=== PATIENT | female | born 1965 | race Caucasian/White ===

== ENCOUNTER 2016-11-21 19:56 | Emergency (ER) | payer MEDICAID, SELFPAY ==
[~2016-11-21 19:56] MED LIST: CEFTIN125 MG/5 M PO; KLOR-CON M2020 ME1 PO; LAMICTAL DPS100 MG PO; LAMICTAL150 MG PO; MAALOX DPS30 ML PO; MOTRIN IB200 MG PO; NEURONTIN DPS300 MG PO; PEPCID DPS20 MG PO; PHENERGAN DPS25 MG PO; POTASSIUM CHLO20 ME1 PO; SURFAK DPS240 MG PO; SYNTHROID DP0.125 MG PO; SYNTHROID150 MCG PO; TOPROL XL50 MG PO; TYLENOL DPS325 MG PO; ULTRAM DPS50 MG PO; ZANAFLEX4 MG PO; ZOFRAN4 MG PO
--- NOTE | 2016-11-23 17:39 | ER ---
ADMIT: 11/21/2016 RM/LOC: ER [facility] MR#: [id number] 26[address] [facility] [address] [place] [id number] GRAHAM MCKENZIE [address] [place] [address] Emergency Room Report SEX: F AGE: 51 : 1965 DATE: 11/21/2016 For chief complaint, history of present illness, past medical history, medications, allergies, review of systems, including physical exam, please see my T-sheet. INTERIM HISTORY: The patient is a 51-year-old, white female, who presents to the emergency room. She does have a longstanding history of chronic back pain of which she sees Pain Management for it. She said occasionally it flares up and then becomes worse for her. The patient reports that nothing new or different has been done. She is waiting on getting a stimulator place, but that will be until January. The patient reports the pain is in the same spot as always. She has an appointment to see Dr. Galvez later this week. PHYSICAL EXAMINATION: VITAL SIGNS: Stable. MUSCULOSKELETAL: The patient has pain to palpation of the lumbar spine. She has limited range of motion with rotation and flexion-extension. EMERGENCY ROOM COURSE: In reviewing the old records, she has had an injection of Toradol, morphine, and Decadron which has given her significant relief. The patient was given this cocktail here in the Emergency Department with instructions to follow up with Dr. Galvez. IMPRESSION: Chronic back pain. PLAN: Home rest. Activity as tolerated. Follow up with Dr. Galvez this week. Return if problems or symptoms worsen. The patient is in stable condition at discharge. MARJORIE Palomares / Anjum Branch MD / jak JOB #: [id number] CC: Anjum Branch MD, Attending Physician Marisol Galvze MD, Family Physician
[2017-01-28] MEDS ORDERED: CIPRO DPS500 MG PO (08:57)
[2017-01-28] MEDS ORDERED: PAXIL DPS20 MG PO (08:58)
[2017-01-28] MEDS ORDERED: SYMBICORT160 MCG/6 IH (08:59)
[2017-06-13] MEDS ORDERED: LIPITOR DPS20 MG PO (13:52)
[2017-06-13] MEDS ORDERED: SEROQUEL50 MG PO (13:52)
[2017-06-13] MEDS ORDERED: ZANTAC DPS150 MG PO (13:53)
[2017-06-13] MEDS ORDERED: TOPROL XL25 MG PO (13:53)
[2017-06-13] MEDS ORDERED: MECLIZINE HCL12.5 MG PO (13:53)
[2017-06-13] MEDS ORDERED: FLEXERIL DPS5 MG PO (13:54)
[2017-06-13] MEDS ORDERED: VISTARIL-DPS25 MG PO (13:55)
[2017-06-13] MEDS ORDERED: NITROFURANTOIN100 MG PO (13:55)
[2017-06-13] MEDS ORDERED: SYNTHROID200 MCG PO (13:55)
[2017-06-13] MEDS ORDERED: TYLENOL DPS325 MG PO (13:56)
[2017-06-13] MEDS ORDERED: LOTENSIN10 MG PO (13:56)
[2017-06-13] MEDS ORDERED: ULTRAM DPS50 MG PO (13:56)
[2017-06-13] MEDS ORDERED: MAALOX DPS30 ML PO (13:56)
[2017-06-13] MEDS ORDERED: COLACE-DPS100 MG PO (13:57)
[2017-06-13] MEDS ORDERED: KEFLEX-DPS500 MG PO (13:57)
== END 2016-11-21 20:45 | disposition home or self-care (01) ==
LOC: ER 19:56
DX: M54.5 Low back pain (principal); G89.29 Other chronic pain

== ENCOUNTER 2017-01-23 06:46 | Inpatient (IN) | payer MEDICARE, MEDICAID ==
[2017-01-28] MEDS ORDERED: CIPRO DPS500 MG PO (08:57)
[2017-01-28] MEDS ORDERED: PAXIL DPS20 MG PO (08:58)
[2017-01-28] MEDS ORDERED: SYMBICORT160 MCG/6 IH (08:59)
[2017-06-13] MEDS ORDERED: LIPITOR DPS20 MG PO (13:52)
[2017-06-13] MEDS ORDERED: SEROQUEL50 MG PO (13:52)
[2017-06-13] MEDS ORDERED: ZANTAC DPS150 MG PO (13:53)
[2017-06-13] MEDS ORDERED: TOPROL XL25 MG PO (13:53)
[2017-06-13] MEDS ORDERED: MECLIZINE HCL12.5 MG PO (13:53)
[2017-06-13] MEDS ORDERED: FLEXERIL DPS5 MG PO (13:54)
[2017-06-13] MEDS ORDERED: VISTARIL-DPS25 MG PO (13:55)
[2017-06-13] MEDS ORDERED: NITROFURANTOIN100 MG PO (13:55)
[2017-06-13] MEDS ORDERED: SYNTHROID200 MCG PO (13:55)
[2017-06-13] MEDS ORDERED: LOTENSIN10 MG PO (13:56)
[2017-06-13] MEDS ORDERED: MAALOX DPS30 ML PO (13:56)
[2017-06-13] MEDS ORDERED: TYLENOL DPS325 MG PO (13:56)
[2017-06-13] MEDS ORDERED: ULTRAM DPS50 MG PO (13:56)
[2017-06-13] MEDS ORDERED: KEFLEX-DPS500 MG PO (13:57)
[2017-06-13] MEDS ORDERED: COLACE-DPS100 MG PO (13:57)
== END 2017-01-27 11:45 | disposition home or self-care (01) | DRG 872 ==
DX: A41.9 Sepsis, unspecified organism (principal); I95.9 Hypotension, unspecified; N39.0 Urinary tract infection, site not specified; B96.20 Unspecified Escherichia coli [E. coli] as the cause of diseases classified elsewhere; M54.9 Dorsalgia, unspecified; E03.9 Hypothyroidism, unspecified; D64.9 Anemia, unspecified; K44.9 Diaphragmatic hernia without obstruction or gangrene; M51.36 Other intervertebral disc degeneration, lumbar region; K59.00 Constipation, unspecified; F32.9 Major depressive disorder, single episode, unspecified; F41.9 Anxiety disorder, unspecified; G89.4 Chronic pain syndrome; Z86.718 Personal history of other venous thrombosis and embolism; Z85.43 Personal history of malignant neoplasm of ovary; Z85.850 Personal history of malignant neoplasm of thyroid

== ENCOUNTER 2017-02-16 08:17 | Day surgery (SDC) | payer MEDICARE, MEDICAID ==
[~2017-02-16] VITALS: Ht 162.6 cm; Wt 84.5 kg
[~2017-02-16 08:17] MED LIST changes: +CIPRO DPS500 MG PO; +PAXIL DPS20 MG PO; +SYMBICORT160 MCG/6 IH
--- NOTE | 2017-02-18 08:05 | OR ---
ADMIT: 02/16/2017 RM/LOC: [facility] [place]#: [id number] [address] [facility] [address] [place] [phone] ARCINIEGA NARVAEZGRAHAM Manan [address] [place] [address] Operative/Delivery Room Report SEX: F AGE: 51 : 1965 SURGERY DATE: 02/16/2017 SURGEON: Marisol Galvez MD PREOPERATIVE DIAGNOSES: 1. Lumbar post laminectomy syndrome. 2. Chronic low back pain. POSTOPERATIVE DIAGNOSES: 1. Lumbar post laminectomy syndrome. 2. Chronic low back pain. OPERATION: Two lead/16 contact spinal cord stimulator trial. ANESTHESIA: Local with sedation. COMPLICATIONS: None. BRIEF INDICATIONS: The patient is a pleasant female with history of chronic low back pain secondary to above mentioned diagnoses, comes here for planned lumbar spinal cord stimulator trial. DESCRIPTION OF PROCEDURE: After informed consent was obtained, the patient was taken to the operative suite and placed in the prone position. Non- invasive anesthesia monitoring was placed. The skin over the lumbar spine was prepped and draped in a sterile fashion using ChloraPrep. A 14-gauge St. Sunday epidural needle was advanced through a stab incision through anesthetized skin. The needle was advanced at the low paramedian angle entering the lumbar spine at the L1-L2 level. The epidural needle was then advanced into L1-L2 interspace using continuous loss of resistance to saline, and once the loss of resistance was noted, the guidewire was introduced into the epidural space. Next, a [employer] Sunday spinal stimulator lead was placed into the epidural space and advanced with tips on top of T8 in a staggered position. Please see dimension in the chart for this. Next, the stimulation was undertaken by a [employer] public health representative. She got good coverage with the middle of the lead across the T9 vertebral body. This was covering the bilateral hip, thigh and back. Stylus was removed and the epidural needle was removed. Then, leads were taped into place and hooked into the electronic connector. The patient tolerated the procedure very well and gave good feedback. There were no complications. There was no blood loss. We will see the patient back in approximately three to four days for lead removal. Marisol Galvez MD/ jak JOB #: [id number] CC: Marisol Galvez MD, Attending Physician ADMIT: 02/16/2017 RM/LOC: [facility] MR#: [id number] [address] [phone] GRAHAM MCKENZIE [address] [place] [address] Operative/Delivery Room Report SEX: F AGE: 51 : 1965 Kira Raymond MD, Family Physician
[2017-06-13] MEDS ORDERED: LIPITOR DPS20 MG PO (13:52)
[2017-06-13] MEDS ORDERED: SEROQUEL50 MG PO (13:52)
[2017-06-13] MEDS ORDERED: ZANTAC DPS150 MG PO (13:53)
[2017-06-13] MEDS ORDERED: MECLIZINE HCL12.5 MG PO (13:53)
[2017-06-13] MEDS ORDERED: TOPROL XL25 MG PO (13:53)
[2017-06-13] MEDS ORDERED: FLEXERIL DPS5 MG PO (13:54)
[2017-06-13] MEDS ORDERED: VISTARIL-DPS25 MG PO (13:55)
[2017-06-13] MEDS ORDERED: SYNTHROID200 MCG PO (13:55)
[2017-06-13] MEDS ORDERED: NITROFURANTOIN100 MG PO (13:55)
[2017-06-13] MEDS ORDERED: LOTENSIN10 MG PO (13:56)
[2017-06-13] MEDS ORDERED: ULTRAM DPS50 MG PO (13:56)
[2017-06-13] MEDS ORDERED: MAALOX DPS30 ML PO (13:56)
[2017-06-13] MEDS ORDERED: TYLENOL DPS325 MG PO (13:56)
[2017-06-13] MEDS ORDERED: COLACE-DPS100 MG PO (13:57)
[2017-06-13] MEDS ORDERED: KEFLEX-DPS500 MG PO (13:57)
== END 2017-02-16 12:53 | disposition home or self-care (01) ==
LOC: SSS 08:17
PROC: 00HU3MZ Insertion of Neurostimulator Lead into Spinal Canal, Percutaneous Approach (ICD-10-PCS; principal; 2017-02-16)
DX: G89.29 Other chronic pain (principal); M96.1 Postlaminectomy syndrome, not elsewhere classified; G47.30 Sleep apnea, unspecified; I10 Essential (primary) hypertension; M19.90 Unspecified osteoarthritis, unspecified site; E03.9 Hypothyroidism, unspecified; Z79.899 Other long term (current) drug therapy; Z79.891 Long term (current) use of opiate analgesic; Z90.710 Acquired absence of both cervix and uterus; Z98.890 Other specified postprocedural states

== ENCOUNTER 2017-03-30 05:31 | Day surgery (SDC) | payer MEDICARE, OTHER, MEDICAID ==
[~2017-03-30] VITALS: Ht 162.6 cm; Wt 82.3 kg
--- NOTE | 2017-04-01 08:38 | OR ---
ADMIT: 03/30/2017 RM/LOC: [facility] MR#: [id number] 26[address] [facility] [address] [place] [id number] ARCINIEGARUTHIE NARVAEZ GRAHAM Hinkle [address] [place], [place] [id number] Operative/Delivery Room Report SEX: F AGE: 51 : 1965 SURGERY DATE: 03/30/2017 SURGEON: Nick Bethea MD PREOPERATIVE DIAGNOSIS: Intractable pain with successful spinal cord stimulator trial. POSTOPERATIVE DIAGNOSIS: Intractable pain with successful spinal cord stimulator trial. PROCEDURE: Thoracic 9-10 laminectomy for implantation of thoracic 8 spinal cord stimulator paddle with placement of internal pulse generator and separate incision after tunneling it down and intraoperative programming with no sign of dysfunction of the device or equipment. DELIVERY DRIVER ASSISTANT: None. DESCRIPTION OF PROCEDURE: After gaining informed consent, the patient was taken to the operative theater, placed under general endotracheal anesthesia in supine position, turned prone on a Carter table with all pressure points purposely padded prior to performing the procedure. She was prepped and draped in the usual sterile fashion. A time-out was utilized to ascertain the correct site and side of surgery as well as other pertinent patient historical information. Counts were obtained at the beginning and end of the case with no change betwixt the two. Antibiotics were given before 1 hour of incision. Fluoroscope was brought into the field. The thoracic 12 was marked with a needle and then counting up and marking thoracic 9 pedicle with another needle was performed. An incision was then fashioned and taken down over top of the thoracic 9 spinous process at the 9-10 level where laminectomy was fashioned in the midline, resecting ligamentum flavum and visualizing the thecal sac. The spinal cord stimulator paddle was then very cautiously passed dorsal to the spinal canal along the midline, covering the entirety of thoracic 8, the middle of which was where the patient's stimulation had been preoperatively. Once this was done, the locking connectors were placed on it and a loop was placed in the system and it was sewn onto the supraspinous ligament and bone with 1 Ethibond. Once this was completed, pristine hemostasis was obtained. Attention was turned to fashioning incision in the left buttocks. An incision was fashioned and a pocket was created. The leads were then tunneled down, connected to the internal pulse generator and implanted, this was sewn in place and covered with multiple layers of inverted interrupted 2-0 Vicryl. Interrupted 2-0 Vicryl was used in the thoracodorsal fascia as well. ADMIT: 03/30/2017 RM/LOC: [facility] MR#: [id number] [address] [id number] GRAHAM MCKENZIE [address] [place] [address] Operative/Delivery Room Report SEX: F AGE: 51 : 1965 The subcutaneous layers were closed with simple inverted interrupted 2-0 Vicryl with subcuticular 3-0 Stratafix on the skin. Steri-Strips over that. Prior to closure, the device was interrogated for pre-programming with no sign of impedance issues with intact internal pulse generator settings. COMPLICATIONS: None. ESTIMATED BLOOD LOSS: Charted. SPECIMEN: None. DISPOSITION: Extubated and taken to postanesthesia care unit. Nick Bethea MD/ levil JOB #: [id number] CC: Nick Bethea MD, Attending Physician Luis Barnes MD, Family Physician
[2017-06-13] MEDS ORDERED: SEROQUEL50 MG PO (13:52)
[2017-06-13] MEDS ORDERED: LIPITOR DPS20 MG PO (13:52)
[2017-06-13] MEDS ORDERED: TOPROL XL25 MG PO (13:53)
[2017-06-13] MEDS ORDERED: MECLIZINE HCL12.5 MG PO (13:53)
[2017-06-13] MEDS ORDERED: ZANTAC DPS150 MG PO (13:53)
[2017-06-13] MEDS ORDERED: FLEXERIL DPS5 MG PO (13:54)
[2017-06-13] MEDS ORDERED: NITROFURANTOIN100 MG PO (13:55)
[2017-06-13] MEDS ORDERED: SYNTHROID200 MCG PO (13:55)
[2017-06-13] MEDS ORDERED: VISTARIL-DPS25 MG PO (13:55)
[2017-06-13] MEDS ORDERED: MAALOX DPS30 ML PO (13:56)
[2017-06-13] MEDS ORDERED: ULTRAM DPS50 MG PO (13:56)
[2017-06-13] MEDS ORDERED: LOTENSIN10 MG PO (13:56)
[2017-06-13] MEDS ORDERED: TYLENOL DPS325 MG PO (13:56)
[2017-06-13] MEDS ORDERED: KEFLEX-DPS500 MG PO (13:57)
[2017-06-13] MEDS ORDERED: COLACE-DPS100 MG PO (13:57)
== END 2017-03-30 12:06 | disposition home or self-care (01) ==
LOC: SSS 05:31
PROC: 00HU0MZ Insertion of Neurostimulator Lead into Spinal Canal, Open Approach (ICD-10-PCS; principal; 2017-03-30)
PROC: 0JH70BZ Insertion of Single Array Stimulator Generator into Back Subcutaneous Tissue and Fascia, Open Approach (ICD-10-PCS; principal; 2017-03-30)
DX: M54.5 Low back pain (principal); I10 Essential (primary) hypertension; E03.9 Hypothyroidism, unspecified; G89.4 Chronic pain syndrome; M54.16 Radiculopathy, lumbar region; M96.1 Postlaminectomy syndrome, not elsewhere classified; G47.33 Obstructive sleep apnea (adult) (pediatric); M46.1 Sacroiliitis, not elsewhere classified; Z98.890 Other specified postprocedural states; Z90.710 Acquired absence of both cervix and uterus; Z90.49 Acquired absence of other specified parts of digestive tract; Z79.899 Other long term (current) drug therapy; Z87.891 Personal history of nicotine dependence

== ENCOUNTER 2017-06-10 03:33 | Inpatient (IN) | payer MEDICARE, OTHER, MEDICAID ==
[2017-06-13] MEDS ORDERED: LIPITOR DPS20 MG PO (13:52)
[2017-06-13] MEDS ORDERED: SEROQUEL50 MG PO (13:52)
[2017-06-13] MEDS ORDERED: MECLIZINE HCL12.5 MG PO (13:53)
[2017-06-13] MEDS ORDERED: ZANTAC DPS150 MG PO (13:53)
[2017-06-13] MEDS ORDERED: TOPROL XL25 MG PO (13:53)
[2017-06-13] MEDS ORDERED: FLEXERIL DPS5 MG PO (13:54)
[2017-06-13] MEDS ORDERED: NITROFURANTOIN100 MG PO (13:55)
[2017-06-13] MEDS ORDERED: VISTARIL-DPS25 MG PO (13:55)
[2017-06-13] MEDS ORDERED: SYNTHROID200 MCG PO (13:55)
[2017-06-13] MEDS ORDERED: TYLENOL DPS325 MG PO (13:56)
[2017-06-13] MEDS ORDERED: LOTENSIN10 MG PO (13:56)
[2017-06-13] MEDS ORDERED: ULTRAM DPS50 MG PO (13:56)
[2017-06-13] MEDS ORDERED: MAALOX DPS30 ML PO (13:56)
[2017-06-13] MEDS ORDERED: COLACE-DPS100 MG PO (13:57)
[2017-06-13] MEDS ORDERED: KEFLEX-DPS500 MG PO (13:57)
== END 2017-06-12 10:15 | disposition home or self-care (01) | DRG 690 ==
DX: N12 Tubulo-interstitial nephritis, not specified as acute or chronic (principal); N17.9 Acute kidney failure, unspecified; I95.9 Hypotension, unspecified; I10 Essential (primary) hypertension; K44.9 Diaphragmatic hernia without obstruction or gangrene; G89.4 Chronic pain syndrome; E89.0 Postprocedural hypothyroidism; F32.9 Major depressive disorder, single episode, unspecified; R33.9 Retention of urine, unspecified; F41.9 Anxiety disorder, unspecified; M51.36 Other intervertebral disc degeneration, lumbar region; Z86.718 Personal history of other venous thrombosis and embolism; Z85.238 Personal history of other malignant neoplasm of thymus; Z85.3 Personal history of malignant neoplasm of breast; Z85.43 Personal history of malignant neoplasm of ovary